=== PATIENT | male | born 1925 | race Caucasian/White ===

== ENCOUNTER 2017-02-22 14:05 | Inpatient (IN) | payer OTHER, MEDICARE ==
[~2017-02-22] VITALS: Ht 175.3 cm; Wt 108.4 kg
[~2017-02-22 14:05] MED LIST: ASPI-1035 PO; ATOR10TA PO; CLOP75TA33 PO; FURO-151 PO; ISOS60TA4 PO; NITR0.4T3 SL; POTA10TA15 PO; TOPXL5 PO; VALS80TA2 PO; WARF1TAB46 PO
[2017-02-22 15:13] VITALS: BP 132/64
[2017-02-22 15:50] VITALS: BP 132/64
[2017-02-22] MEDS ORDERED: NON FORMULARY PATIENT HOME MED EA XX SCH (16:00)
[2017-02-22] MEDS: ASPIRIN 81MG EC TABLET PO SCH (16:00)
[2017-02-22 16:20] LABS: BASOPHILS % 0.7 % (0.0-2.0); EOSINOPHILS % 3.4 % (0.0-5.0); HEMATOCRIT. 33.6 % (42.0-52.0); HEMOGLOBIN. 10.9 g/dL (14.0-18.0); LYMPHOCYTES % 16.4 % (20.0-50.0); MEAN CORPUSCULAR HEMOGLOBIN 29.2 pg (28.0-32.0); MEAN CORPUSCULAR HGB CONC 32.5 g/dL (31.0-37.0); MEAN PLATELET VOLUME 8.9 fl (7.4-10.4); MONOCYTES % 12.8 % (2.0-8.0); NEUTROPHILS % 66.7 % (40.0-76.0); PLATELET 155 x1000/uL (130-400); RED BLOOD CELL COUNT 3.74 mill/uL (4.7-6.1); RED CELL DISTRIBUTION WIDTH 16.9 % (11.6-14.6); WHITE BLOOD COUNT 5.4 x1000/uL (4.5-11.0)
[2017-02-22 16:23] LABS: CHLORIDE 109 mEq/L (98-107); INDEX HEMOLYSI 1 (1-3); INDEX ICTERIC 1 (1-4); INDEX LIPEMIC 1 (1-3)
[2017-02-22] MEDS: ISOSORBIDE MONONITRATE 20MG TABLET PO SCH (16:30)
[2017-02-22] MEDS: POTASSIUM CHLORIDE 20MEQ TABLET SR PO SCH (16:36)
[2017-02-22] MEDS: FUROSEMIDE 40MG/4ML VIAL IVP SCH (16:36)
[2017-02-22 16:38] LABS: ALANINE AMINOTRANSFERASE 25 IU/L (13-61); ALBUMIN 3.1 g/dL (3.4-5.0); ANION GAP 9; CALCIUM 8.5 mg/dL (8.5-10.1); CARBON DIOXIDE 28 mEq/L (21-32); MAGNESIUM 2.3 mg/dL (1.8-2.4); NT PRO B-TYPE NATRIURETIC PEP 1565 pg/mL (5-125); T3 FREE 1.95 pg/ml (2.18-3.98); UREA NITROGEN BLOOD 32 mg/dL (7-21); eGFR > 60 mL/min (>60)
[2017-02-22 17:34] LABS: CLARITY URINE CLEAR (CLEAR); COLOR URINE YELLOW (YELLOW); GLUCOSE URINE NEGATIVE (NEGATIVE); KETONES URINE NEGATIVE (NEGATIVE); LEUKOCYTE ESTERASE URINE 1+ (NEGATIVE); NITRITE URINE NEGATIVE (NEGATIVE); OCCULT BLOOD URINE 2+ (NEGATIVE); PH URINE 5.5 (4.5-8.0); PROTEIN URINE TRACE (NEGATIVE); SPECIFIC GRAVITY URINE 1.015 (1.005-1.030)
[2017-02-22 17:52] LABS: BACTERIA URINE TRACE; SQUAMOUS EPITHELIAL CELL URINE RARE /lpf (RARE/1+)
[2017-02-22 18:00] VITALS: BP 141/84
[2017-02-22] MEDS ORDERED: IPRATROPIUM/ALBUTEROL 0.5-3(2.5)MG/3ML NEB HHN PRN (18:45)
[2017-02-22 20:25] VITALS: BP 145/71
[2017-02-22] MEDS: ATORVASTATIN CALCIUM 10MG TABLET PO SCH (20:40)
[2017-02-23] VITALS (12 sets, daily range): BP systolic 110–156; BP diastolic 44–79
[2017-02-23] MEDS ORDERED: ACETAMINOPHEN 500MG TABLET PO PRN (02:30)
[2017-02-23] MEDS: FUROSEMIDE 40MG/4ML VIAL IVP SCH ×2 (06:13→17:23)
[2017-02-23 07:54] LABS: ALANINE AMINOTRANSFERASE 23 IU/L (13-61); ALBUMIN 3.1 g/dL (3.4-5.0); ANION GAP 11; CALCIUM 8.6 mg/dL (8.5-10.1); CARBON DIOXIDE 29 mEq/L (21-32); CHLORIDE 105 mEq/L (98-107); INDEX HEMOLYSI 1 (1-3); INDEX ICTERIC 1 (1-4); INDEX LIPEMIC 1 (1-3); UREA NITROGEN BLOOD 28 mg/dL (7-21); eGFR > 60 mL/min (>60)
[2017-02-23] MEDS: IPRATROPIUM/ALBUTEROL 0.5-3(2.5)MG/3ML NEB HHN SCH ×4 (08:48→20:15)
[2017-02-23] MEDS: POTASSIUM CHLORIDE 20MEQ TABLET SR PO SCH (10:03)
[2017-02-23] MEDS: ASPIRIN 81MG EC TABLET PO SCH (10:04)
[2017-02-23] MEDS: METOLAZONE 2.5MG TABLET PO SCH (10:04)
[2017-02-23] MEDS: LOSARTAN POTASSIUM 50 MG TABLET PO SCH (10:05)
[2017-02-23] MEDS: ISOSORBIDE MONONITRATE 20MG TABLET PO SCH (11:05)
[2017-02-23] MEDS: ATORVASTATIN CALCIUM 10MG TABLET PO SCH (20:25)
[2017-02-23] MEDS ORDERED: POTASSIUM CHLORIDE 10MEQ TABLET SR PO NR (22:30)
[2017-02-23] MEDS: CARVEDILOL 3.125 MG TABLET PO SCH (22:43)
[2017-02-23] MEDS: ACETAMINOPHEN 325MG TABLET PO PRN (22:46)
[2017-02-24] VITALS (12 sets, daily range): BP systolic 99–159; BP diastolic 44–89
[2017-02-24] MEDS: IPRATROPIUM/ALBUTEROL 0.5-3(2.5)MG/3ML NEB HHN SCH ×5 (00:05→20:28)
[2017-02-24] MEDS: FUROSEMIDE 40MG/4ML VIAL IVP SCH ×2 (06:31→16:56)
[2017-02-24 07:27] LABS: ALANINE AMINOTRANSFERASE 22 IU/L (13-61); ALBUMIN 2.6 g/dL (3.4-5.0); ANION GAP 10; CALCIUM 8.4 mg/dL (8.5-10.1); CARBON DIOXIDE 33 mEq/L (21-32); CHLORIDE 100 mEq/L (98-107); INDEX HEMOLYSI 2 (1-3); INDEX ICTERIC 1 (1-4); INDEX LIPEMIC 1 (1-3); NT PRO B-TYPE NATRIURETIC PEP 1621 pg/mL (5-125); UREA NITROGEN BLOOD 28 mg/dL (7-21); eGFR > 60 mL/min (>60)
[2017-02-24] MEDS: ASPIRIN 81MG EC TABLET PO SCH (10:14)
[2017-02-24] MEDS: ISOSORBIDE MONONITRATE 20MG TABLET PO SCH (10:14)
[2017-02-24] MEDS: LOSARTAN POTASSIUM 50 MG TABLET PO SCH (10:14)
[2017-02-24] MEDS: METOLAZONE 2.5MG TABLET PO SCH (10:14)
[2017-02-24] MEDS: POTASSIUM CHLORIDE 20MEQ TABLET SR PO SCH (10:14)
[2017-02-24] MEDS: CARVEDILOL 3.125 MG TABLET PO SCH ×2 (10:15→21:00)
[2017-02-24] MEDS: ATORVASTATIN CALCIUM 10MG TABLET PO SCH (22:01)
[2017-02-24] MEDS: ACETAMINOPHEN 325MG TABLET PO PRN (23:33)
[2017-02-25] VITALS (12 sets, daily range): BP systolic 104–138; BP diastolic 44–67
[2017-02-25 06:24] LABS: HEMATOCRIT. 37.5 % (42.0-52.0); HEMOGLOBIN. 12.4 g/dL (14.0-18.0); MEAN CORPUSCULAR HEMOGLOBIN 29.5 pg (28.0-32.0); MEAN CORPUSCULAR HGB CONC 33.1 g/dL (31.0-37.0); MEAN CORPUSCULAR VOLUME 88.9 fL (80.0-94.0); MEAN PLATELET VOLUME 9.6 fl (7.4-10.4); PLATELET 154 x1000/uL (130-400); RED BLOOD CELL COUNT 4.22 mill/uL (4.7-6.1); RED CELL DISTRIBUTION WIDTH 15.7 % (11.6-14.6); WHITE BLOOD COUNT 11.8 x1000/uL (4.5-11.0)
[2017-02-25 06:49] LABS: DIFFERENTIAL COMMENT 1
[2017-02-25] MEDS: FUROSEMIDE 40MG/4ML VIAL IVP SCH (06:53)
[2017-02-25 07:45] LABS: ALBUMIN 2.9 g/dL (3.4-5.0); ANION GAP 12; CARBON DIOXIDE 34 mEq/L (21-32); CHLORIDE 93 mEq/L (98-107); INDEX HEMOLYSI 1 (1-3); INDEX ICTERIC 1 (1-4); INDEX LIPEMIC 1 (1-3); UREA NITROGEN BLOOD 36 mg/dL (7-21)
[2017-02-25 07:48] LABS: ALANINE AMINOTRANSFERASE 26 IU/L (13-61); eGFR > 60 mL/min (>60)
[2017-02-25] MEDS: ACETAMINOPHEN 325MG TABLET PO PRN (07:57)
[2017-02-25 08:14] LABS: NUCLEATED RED BLOOD CELLS 1 /100 WBC
[2017-02-25 08:15] LABS: PLATELET ESTIMATE NORMAL
[2017-02-25] MEDS: METOLAZONE 2.5MG TABLET PO SCH (08:47)
[2017-02-25] MEDS: ASPIRIN 81MG EC TABLET PO SCH (08:47)
[2017-02-25] MEDS: ISOSORBIDE MONONITRATE 20MG TABLET PO SCH (08:47)
[2017-02-25] MEDS: CARVEDILOL 3.125 MG TABLET PO SCH ×2 (08:47→21:33)
[2017-02-25] MEDS: LOSARTAN POTASSIUM 50 MG TABLET PO SCH (08:47)
[2017-02-25] MEDS: POTASSIUM CHLORIDE 20MEQ TABLET SR PO SCH (08:47)
[2017-02-25] MEDS: IPRATROPIUM/ALBUTEROL 0.5-3(2.5)MG/3ML NEB HHN SCH ×5 (08:52→20:40)
[2017-02-25 10:53] LABS: BG BASE EXCESS 8.4 mmol/L (-2.0-2.0); BG CARBOXYHEMOGLOBIN 1.3 % (0.5-1.5); BG DEOXYHEMOGLOBIN 6.5 % (0.0-5.0); BG FRACTION INSPIRED OXYGEN 21; BG HCO3 ACT 31.6 mmol/L (22.0-26.0); BG METHEMOGLOBIN 0.2 % (0.0-1.5); BG OXYGEN SATURATION 93.4 % (92.0-98.5); BG PCO2 38.7 mmHg (35.0-45.0); BG SAMPLE SITE RIGHT RADIAL; BG TOTAL HEMOGLOBIN 12.9 g/dL (12.0-18.0); BG VENT MODE ROOM AIR
[2017-02-25] MEDS ORDERED: KCL 20MEQ/100ML PREMIX 100 ML IV NR (11:00)
[2017-02-25] MEDS ORDERED: REGADENOSON 0.4 MG/5 ML IV ONE (12:49)
[2017-02-25] MEDS ORDERED: POTASSIUM CHLORIDE 10MEQ TABLET SR PO NR (14:00)
[2017-02-25] MEDS: ATORVASTATIN CALCIUM 10MG TABLET PO SCH (21:32)
[2017-02-25] MEDS ORDERED: POTASSIUM CHLORIDE 20MEQ TABLET SR PO NR (23:42)
[2017-02-25] MEDS ORDERED: CEFAZOLIN 1000MG PREMIX 50 ML IV STA (23:58)
[2017-02-26] VITALS (12 sets, daily range): BP systolic 91–133; BP diastolic 41–54
[2017-02-26] MEDS ORDERED: POTASSIUM CHLORIDE 20MEQ TABLET SR PO ONE
[2017-02-26 05:57] LABS: HEMATOCRIT. 34.5 % (42.0-52.0); HEMOGLOBIN. 11.7 g/dL (14.0-18.0); MEAN CORPUSCULAR HEMOGLOBIN 30.1 pg (28.0-32.0); MEAN CORPUSCULAR HGB CONC 34.1 g/dL (31.0-37.0); MEAN CORPUSCULAR VOLUME 88.3 fL (80.0-94.0); PLATELET 150 x1000/uL (130-400); RED CELL DISTRIBUTION WIDTH 16.4 % (11.6-14.6); WHITE BLOOD COUNT 10.5 x1000/uL (4.5-11.0)
[2017-02-26 06:07] LABS: INR 1.3; PARTIAL THROMBOPLASTIN TIME 36.4 sec (24.0-34.0); PROTHROMBIN TIME 13.3 sec
[2017-02-26 06:46] LABS: DIFFERENTIAL COMMENT 1
[2017-02-26] MEDS ORDERED: GENTAMICIN SULF 40MG/ML 2ML VIAL ONE (06:49)
[2017-02-26] MEDS ORDERED: CEFAZOLIN 1000MG PREMIX 0 ML IV ONE (06:49)
[2017-02-26] MEDS ORDERED: LIDOCAINE HCL 1% 20ML VIAL (Pyxis) INJ ONE (06:49)
[2017-02-26] MEDS ORDERED: GENTAMICIN/NS IRRIGATION 0 ML IR ONE (06:50)
[2017-02-26 06:59] LABS: ANION GAP 13; ANISOCYTOSIS 1+; CALCIUM 8.1 mg/dL (8.5-10.1); CARBON DIOXIDE 33 mEq/L (21-32); CHLORIDE 93 mEq/L (98-107); INDEX HEMOLYSI 1 (1-3); INDEX ICTERIC 1 (1-4); INDEX LIPEMIC 1 (1-3); NT PRO B-TYPE NATRIURETIC PEP 3018 pg/mL (5-125); PLATELET ESTIMATE NORMAL; UREA NITROGEN BLOOD 37 mg/dL (7-21); eGFR > 60 mL/min (>60)
[2017-02-26] MEDS ORDERED: FUROSEMIDE 40MG/4ML VIAL IVP SCH (09:00)
[2017-02-26] MEDS: ACETAMINOPHEN 325MG TABLET PO PRN (09:23)
[2017-02-26] MEDS: LOSARTAN POTASSIUM 50 MG TABLET PO SCH (09:24)
[2017-02-26] MEDS: METOLAZONE 2.5MG TABLET PO SCH (09:24)
[2017-02-26] MEDS: CARVEDILOL 3.125 MG TABLET PO SCH ×2 (09:24→21:00)
[2017-02-26] MEDS: POTASSIUM CHLORIDE 20MEQ TABLET SR PO SCH (09:24)
[2017-02-26] MEDS: ISOSORBIDE MONONITRATE 20MG TABLET PO SCH (09:24)
[2017-02-26] MEDS: ASPIRIN 81MG EC TABLET PO SCH (09:24)
[2017-02-26] MEDS ORDERED: DIATR MEGLU/DIATRIZOATE SOLN 30ML PO SCH (10:00)
[2017-02-26] MEDS ORDERED: BARIUM SULFATE 450ML ORAL SUSP PO SCH (10:00)
[2017-02-26] MEDS ORDERED: OXYBUTYNIN CHLORIDE 5MG TABLET PO PRN (10:15)
[2017-02-26 10:23] LABS: BASOPHILS % 0.2 % (0.0-2.0); EOSINOPHILS % 0.3 % (0.0-5.0); HEMOGLOBIN. 11.1 g/dL (14.0-18.0); LYMPHOCYTES % 9.5 % (20.0-50.0); MEAN CORPUSCULAR HEMOGLOBIN 29.5 pg (28.0-32.0); MEAN CORPUSCULAR HGB CONC 33.6 g/dL (31.0-37.0); MEAN CORPUSCULAR VOLUME 87.7 fL (80.0-94.0); MEAN PLATELET VOLUME 8.6 fl (7.4-10.4); MONOCYTES % 14.2 % (2.0-8.0); NEUTROPHILS % 75.8 % (40.0-76.0); PLATELET 144 x1000/uL (130-400); RED BLOOD CELL COUNT 3.76 mill/uL (4.7-6.1); RED CELL DISTRIBUTION WIDTH 16.2 % (11.6-14.6); WHITE BLOOD COUNT 9.1 x1000/uL (4.5-11.0)
[2017-02-26 10:36] LABS: ANION GAP 9; CARBON DIOXIDE 36 mEq/L (21-32); CHLORIDE 94 mEq/L (98-107); INDEX HEMOLYSI 1 (1-3); INDEX ICTERIC 1 (1-4); INDEX LIPEMIC 1 (1-3); UREA NITROGEN BLOOD 40 mg/dL (7-21); eGFR > 60 mL/min (>60)
[2017-02-26 11:00] LABS: BG BASE EXCESS 9.4 mmol/L (-2.0-2.0); BG CARBOXYHEMOGLOBIN 0.7 % (0.5-1.5); BG DEOXYHEMOGLOBIN 4.1 % (0.0-5.0); BG FRACTION INSPIRED OXYGEN 21; BG HCO3 ACT 32.6 mmol/L (22.0-26.0); BG METHEMOGLOBIN 0.2 % (0.0-1.5); BG OXYGEN SATURATION 95.9 % (92.0-98.5); BG PCO2 39.1 mmHg (35.0-45.0); BG PH 7.539 (7.350-7.450); BG PO2 76.2 mmHg (75.0-100.0); BG SAMPLE SITE RIGHT BRACHIAL; BG TOTAL HEMOGLOBIN 11.7 g/dL (12.0-18.0); BG VENT MODE ROOM AIR
[2017-02-26] MEDS ORDERED: LEVOFLOXACIN 500MG TABLET PO SCH (11:00)
[2017-02-26] MEDS ORDERED: SODIUM CHLORIDE 0.9% 10ML VIAL ONE (11:26)
[2017-02-26] MEDS ORDERED: IOHEXOL-300 100 ML BOTTLE ONE (11:26)
[2017-02-26] MEDS ORDERED: PIPERACILLIN/TAZOBACTAM 3.375GM/50ML PREMIX IV SCH (14:00)
[2017-02-26] MEDS: PIPERACILLIN/TAZ 3.375G PREMIX 50 ML IV SCH ×2 (14:55→21:46)
[2017-02-26] MEDS ORDERED: FUROSEMIDE 40MG TABLET PO NR (15:30)
[2017-02-26] MEDS ORDERED: NON FORMULARY PATIENT HOME MED EA XX SCH (17:30)
[2017-02-26] MEDS: IPRATROPIUM/ALBUTEROL 0.5-3(2.5)MG/3ML NEB HHN SCH (20:35)
[2017-02-26] MEDS: ATORVASTATIN CALCIUM 10MG TABLET PO SCH (21:46)
[2017-02-27] VITALS (13 sets, daily range): BP systolic 99–120; BP diastolic 39–72
[2017-02-27] MEDS: PIPERACILLIN/TAZ 3.375G PREMIX 50 ML IV SCH ×3 (06:22→22:25)
[2017-02-27] MEDS: IPRATROPIUM/ALBUTEROL 0.5-3(2.5)MG/3ML NEB HHN SCH ×4 (08:54→20:00)
[2017-02-27 10:52] LABS: BASOPHILS % 1.4 % (0.0-2.0); EOSINOPHILS % 2.8 % (0.0-5.0); HEMATOCRIT. 32.9 % (42.0-52.0); HEMOGLOBIN. 11.1 g/dL (14.0-18.0); LYMPHOCYTES % 9.6 % (20.0-50.0); MEAN CORPUSCULAR HEMOGLOBIN 29.7 pg (28.0-32.0); MEAN CORPUSCULAR HGB CONC 33.8 g/dL (31.0-37.0); MEAN PLATELET VOLUME 8.6 fl (7.4-10.4); MONOCYTES % 6.5 % (2.0-8.0); NEUTROPHILS % 79.7 % (40.0-76.0); PLATELET 140 x1000/uL (130-400); RED BLOOD CELL COUNT 3.74 mill/uL (4.7-6.1); RED CELL DISTRIBUTION WIDTH 16.3 % (11.6-14.6); WHITE BLOOD COUNT 6.2 x1000/uL (4.5-11.0)
[2017-02-27 11:06] LABS: CALCIUM 8.3 mg/dL (8.5-10.1)
[2017-02-27 11:14] LABS: BG BASE EXCESS 4.7 mmol/L (-2.0-2.0); BG CARBOXYHEMOGLOBIN 0.5 % (0.5-1.5); BG DEOXYHEMOGLOBIN 3.5 % (0.0-5.0); BG FRACTION INSPIRED OXYGEN 28; BG HCO3 ACT 28.3 mmol/L (22.0-26.0); BG OXYGEN SATURATION 96.5 % (92.0-98.5); BG PCO2 38.3 mmHg (35.0-45.0); BG PH 7.486 (7.350-7.450); BG PO2 84.1 mmHg (75.0-100.0); BG SAMPLE SITE RIGHT RADIAL; BG TOTAL HEMOGLOBIN 12.1 g/dL (12.0-18.0); BG VENT MODE NASAL CANNULA
[2017-02-27] MEDS: CARVEDILOL 3.125 MG TABLET PO SCH ×2 (11:33→20:36)
[2017-02-27] MEDS: ISOSORBIDE MONONITRATE 20MG TABLET PO SCH (11:34)
[2017-02-27] MEDS: LOSARTAN POTASSIUM 50 MG TABLET PO SCH (11:34)
[2017-02-27] MEDS: METOLAZONE 2.5MG TABLET PO SCH (11:43)
[2017-02-27] MEDS: ASPIRIN 81MG EC TABLET PO SCH (11:59)
[2017-02-27] MEDS ORDERED: POTASSIUM CHLORIDE 20MEQ TABLET SR PO NR ×2 (12:00→20:00)
[2017-02-27] MEDS: POTASSIUM CHLORIDE 20MEQ TABLET SR PO SCH (12:00)
[2017-02-27] MEDS: ACETAMINOPHEN 325MG TABLET PO PRN (18:38)
[2017-02-27] MEDS: ATORVASTATIN CALCIUM 10MG TABLET PO SCH (20:35)
[2017-02-28] VITALS (10 sets, daily range): BP systolic 95–118; BP diastolic 52–67
[2017-02-28] MEDS: PIPERACILLIN/TAZ 3.375G PREMIX 50 ML IV SCH (05:05)
[2017-02-28 06:27] LABS: AMMONIA 95 uMol/L (<32); INDEX HEMOLYSI 1 (1-3)
[2017-02-28 06:56] LABS: CALCIUM 8.1 mg/dL (8.5-10.1); PHOSPHORUS 3.9 mg/dL (2.5-4.9)
[2017-02-28] MEDS: ACETAMINOPHEN 325MG TABLET PO PRN (08:19)
[2017-02-28] MEDS: POTASSIUM CHLORIDE 20MEQ TABLET SR PO SCH (08:20)
[2017-02-28] MEDS: ISOSORBIDE MONONITRATE 20MG TABLET PO SCH (08:20)
[2017-02-28] MEDS: CARVEDILOL 3.125 MG TABLET PO SCH (08:20)
[2017-02-28] MEDS: ASPIRIN 81MG EC TABLET PO SCH (08:21)
[2017-02-28] MEDS ORDERED: IPRATROPIUM/ALBUTEROL 0.5-3(2.5)MG/3ML NEB HHN PRN (08:45)
[2017-02-28] MEDS: IPRATROPIUM/ALBUTEROL 0.5-3(2.5)MG/3ML NEB HHN SCH ×3 (08:57→16:20)
[2017-02-28] MEDS: LOSARTAN POTASSIUM 50 MG TABLET PO SCH ×2 (09:00→09:57)
[2017-03-01] MEDS ORDERED: LEVOFLOXACIN 250MG TABLET PO SCH (09:00)
== END 2017-02-28 18:30 | disposition home or self-care (01) | DRG 292 ==
LOC: 3WST 14:05
PROC: 5A09357 Assistance with Respiratory Ventilation, Less than 24 Consecutive Hours, Continuous Positive Airway Pressure (ICD-10-PCS; principal; 2017-02-24)
DX: I11.0 Hypertensive heart disease with heart failure (principal); E46 Unspecified protein-calorie malnutrition; N39.0 Urinary tract infection, site not specified; I31.3 Pericardial effusion (noninflammatory); I42.9 Cardiomyopathy, unspecified; I50.40 Unspecified combined systolic (congestive) and diastolic (congestive) heart failure; I48.2 Chronic atrial fibrillation; E66.01 Morbid (severe) obesity due to excess calories; N48.89 Other specified disorders of penis; B96.4 Proteus (mirabilis) (morganii) as the cause of diseases classified elsewhere; E78.5 Hyperlipidemia, unspecified; G47.33 Obstructive sleep apnea (adult) (pediatric); I25.10 Atherosclerotic heart disease of native coronary artery without angina pectoris; I27.2 Other secondary pulmonary hypertension; I77.819 Aortic ectasia, unspecified site; J44.9 Chronic obstructive pulmonary disease, unspecified; K76.0 Fatty (change of) liver, not elsewhere classified; K80.20 Calculus of gallbladder without cholecystitis without obstruction; M19.012 Primary osteoarthritis, left shoulder; N40.0 Benign prostatic hyperplasia without lower urinary tract symptoms; M17.0 Bilateral primary osteoarthritis of knee; R35.0 Frequency of micturition; Z98.61 Coronary angioplasty status; Z79.01 Long term (current) use of anticoagulants; Z95.0 Presence of cardiac pacemaker; I25.2 Old myocardial infarction; Z68.35 Body mass index [BMI] 35.0-35.9, adult
CPT/HCPCS: 36415; 36600; 71010; 74178; 76870; 78452; 78582; 80048; 80053; 81001; 82140; 82375; 82805; 83735; 83880; 84100; 84132; 84439; 84443; 84481; 84484; 85007; 85025; 85027; 85610; 85730; 87040; 87077; 87086; 87186; 93005; 93017; 93306; 93970; 93976; 94640; 97167; A4216; A9500; A9558; J0690; J1580; J1940; J2543; J2785; J3480; J3490; J7040; J7620; Q9967

== ENCOUNTER → 2017-04-15 | Outpatient (CLI) | payer OTHER, MEDICARE ==
[~2017-04-15] MED LIST changes: +ACET-2178 PO; +ALBU6.7H INH; +APIX5TAB PO; -ASPI-1035 PO; +ASPI-1159 PO; +CARV3.1242 PO; -CLOP75TA33 PO; +DIPH-514 PO; +DOCU-138 PO; +ISOS30TA6 PO; -ISOS60TA4 PO; +LACT10SO6 PO; +LOSA25TA12 PO; -NITR0.4T3 SL; +OXYB5TAB11 PO; +PETR85OI TP; -POTA10TA15 PO; +PROT40 PO; +RIFA550T PO; +TAMS-11 PO; -TOPXL5 PO; -VALS80TA2 PO; -WARF1TAB46 PO
[2017-04-15 16:39] LABS: BASOPHILS % 0.5 % (0.0-2.0); EOSINOPHILS % 3.1 % (0.0-5.0); HEMATOCRIT. 28.4 % (42.0-52.0); HEMOGLOBIN. 9.5 g/dL (14.0-18.0); LYMPHOCYTES % 15.8 % (20.0-50.0); MEAN CORPUSCULAR HEMOGLOBIN 28.4 pg (28.0-32.0); MEAN CORPUSCULAR VOLUME 84.9 fL (80.0-94.0); MEAN PLATELET VOLUME 8.4 fl (7.4-10.4); MONOCYTES % 13.3 % (2.0-8.0); NEUTROPHILS % 67.3 % (40.0-76.0); PLATELET 177 x1000/uL (130-400); RED BLOOD CELL COUNT 3.34 mill/uL (4.7-6.1); RED CELL DISTRIBUTION WIDTH 17.1 % (11.6-14.6)
[2017-04-15 16:41] LABS: CARBON DIOXIDE 27 mEq/L (21-32); CHLORIDE 107 mEq/L (98-107)
== END | disposition home or self-care (01) ==
LOC: LAB 15:59
PROVIDERS: ATTEND Internal Medicine Clinical Cardiac Electrophysiology
DX: I50.23 Acute on chronic systolic (congestive) heart failure (principal); I48.1 Persistent atrial fibrillation; Z95.0 Presence of cardiac pacemaker
CPT/HCPCS: 36415; 80048; 85025; 87040

== ENCOUNTER → 2017-05-22 | Outpatient (CLI) | payer OTHER, MEDICARE ==
[~2017-05-22] MED LIST changes: -ACET-2178 PO; -ALBU6.7H INH; -APIX5TAB PO; -CARV3.1242 PO; -DIPH-514 PO; -DOCU-138 PO; -FURO-151 PO; -ISOS30TA6 PO; -LACT10SO6 PO; -LOSA25TA12 PO; -OXYB5TAB11 PO; -PETR85OI TP; -PROT40 PO; -RIFA550T PO; -TAMS-11 PO
== END | disposition home or self-care (01) ==
LOC: RAD 15:46
PROVIDERS: ATTEND Internal Medicine Critical Care Medicine
DX: S92.254D Nondisplaced fracture of navicular [scaphoid] of right foot, subsequent encounter for fracture with routine healing (principal); X58.XXXD Exposure to other specified factors, subsequent encounter
CPT/HCPCS: 73110

== ENCOUNTER → 2017-05-24 | Outpatient (CLI) | payer OTHER, MEDICARE | END | disposition home or self-care (01) | LOC: CT 12:19 | PROVIDERS: ATTEND Internal Medicine Clinical Cardiac Electrophysiology | DX: I25.5 Ischemic cardiomyopathy (principal); I47.2 Ventricular tachycardia; G31.89 Other specified degenerative diseases of nervous system; I65.29 Occlusion and stenosis of unspecified carotid artery | CPT/HCPCS: 70450 ==